=== PATIENT | female | born 1990 | race Caucasian/White ===

== ENCOUNTER 2017-03-15 10:30 | Observation (INO) | payer OTHER ==
[~2017-03-15] VITALS: Ht 152 cm; Wt 65.4 kg
[2017-03-15 10:45] VITALS: BP 118/85
[2017-03-15] MEDS ORDERED: PREN1TAB80 PO (10:46)
[2017-03-15 12:35] LABS: HEMOGLOBIN A1C 5.7 % (4.5-6.2)
== END 2017-03-15 13:00 | disposition home or self-care (01) ==
LOC: 4S 10:30
PROVIDERS: ADMIT Obstetrics & Gynecology; ATTEND Obstetrics & Gynecology
DX: O24.419 Gestational diabetes mellitus in pregnancy, unspecified control (principal); Z3A.39 39 weeks gestation of pregnancy
CPT/HCPCS: 36415; 59025; 82947; 83036; G0378

== ENCOUNTER 2017-03-18 10:50 | Observation (INO) | payer OTHER ==
[~2017-03-18] VITALS: Ht 152.4 cm; Wt 65.8 kg
[~2017-03-18 10:50] MED LIST: PREN1TAB80 PO
[2017-03-18 11:51] VITALS: BP 102/64
== END 2017-03-18 11:10 | disposition home or self-care (01) ==
LOC: 4S 10:50
PROVIDERS: ADMIT Obstetrics & Gynecology; ATTEND Obstetrics & Gynecology
DX: Z34.93 Encounter for supervision of normal pregnancy, unspecified, third trimester (principal); Z3A.39 39 weeks gestation of pregnancy
CPT/HCPCS: 59025; G0378

== ENCOUNTER 2017-03-19 04:14 | Inpatient (IN) | payer OTHER ==
[~2017-03-19] VITALS: Ht 154.9 cm; Wt 65.3 kg
[2017-03-19] MEDS ORDERED: OXYTOCIN 30 UNITS/LACT RINGERS 500 ML IV ONE (04:29)
[2017-03-19] MEDS ORDERED: RINGERS SOLUTION,LACTATED 1,000 ML IV SCH (04:29)
[2017-03-19] MEDS ORDERED: METOCLOPRAMIDE HCL 5 MG/ML 2 ML VIAL IVP PRN (04:30)
[2017-03-19] MEDS ORDERED: CITRIC ACID/SODIUM CITRATE 30 ML SOLUTION UDCUP PO PRN (04:30)
[2017-03-19] MEDS: RINGERS SOLUTION,LACTATED 1,000 ML IV PRN ×2 (05:11→08:30)
[2017-03-19] MEDS: FentaNYL CITRATE-PF 100 MCG/2 ML VIAL IVP PRN ×3 (05:12→06:45)
[2017-03-19 05:15] VITALS: BP 135/85
[2017-03-19 05:18] LABS: BASOPHILS # (AUTO) 0.03 K/uL (0.00-0.20); BASOPHILS % (AUTO) 0.2 % (0.0-2.0); EOSINOPHILS # (AUTO) 0.06 K/uL (0.00-0.70); EOSINOPHILS % (AUTO) 0.45 % (1.0-6.0); HEMATOCRIT 38.2 % (36-46); HEMOGLOBIN 12.8 g/dL (12.0-16.0); LYMPHOCYTES # (AUTO) 1.7 K/uL (1.0-4.8); MEAN CORPUSCULAR HEMOGLOBIN 31.1 pg (26.0-34.0); MEAN CORPUSCULAR HGB CONC 33.4 G/dL (31.0-37.0); MEAN CORPUSCULAR VOLUME 93 fL (80-100); MONOCYTES % (AUTO) 7.5 % (2.0-9.0); NEUTROPHILS # (AUTO) 10.3 K/uL (1.8-7.7); NEUTROPHILS % (AUTO) 78.8 % (40.0-70.0); RED CELL DISTRIBUTION WIDTH 13.4 % (11.5-14.5)
[2017-03-19] MEDS ORDERED: FentaNYL/BUPIV 0.125%/NS/PF 200 ML ED ONE (07:54)
[2017-03-19] MEDS ORDERED: LIDOCAINE HCL/PF 2% 5 ML VIAL ONE ×2 (07:54→14:30)
[2017-03-19] MEDS ORDERED: BUPIVACAINE HCL/PF 0.25% 10 ML VIAL ONE (07:54)
[2017-03-19] MEDS ORDERED: OXYGEN THERAPY IH SCH (08:00)
[2017-03-19] MEDS ORDERED: FentaNYL/BUPIV 0.125%/NS/PF 200 ML ED PRN (08:38)
[2017-03-19] MEDS ORDERED: NALBUPHINE HCL 10 MG/ML VIAL IVP PRN (08:45)
[2017-03-19] MEDS ORDERED: PROMETHAZINE HCL 12.5 MG in SODIUM CHLORIDE 0.9% 50 ML IV PRN (08:45)
[2017-03-19] MEDS ORDERED: DiphenhydrAMINE HCL 50 MG/ML VIAL IVP PRN (08:45)
[2017-03-19] MEDS ORDERED: ONDANSETRON HCL 4 MG/2 ML VIAL IVP PRN (08:45)
[2017-03-19] MEDS ORDERED: AMPICILLIN SODIUM 2 GM/NS 100 ML IV ONE (09:00)
[2017-03-19] MEDS ORDERED: OXYTOCIN 30 UNITS/LACT RINGERS 500 ML IV PRN (09:48)
[2017-03-19] MEDS: AMPICILLIN SODIUM 1 GM/NS 50 ML IV SCH ×2 (13:13→16:38)
[2017-03-19] MEDS ORDERED: FentaNYL CITRATE-PF 100 MCG/2 ML VIAL ONE (14:30)
[2017-03-19] MEDS ORDERED: BUPIVACAINE HCL/PF 0.5% 10 ML VIAL ONE (14:30)
[2017-03-19] MEDS ORDERED: GENTAMICIN 100 MG/NACL ISO-OSM 50 ML IV ONE (17:00)
[2017-03-19] MEDS ORDERED: LANOLIN 7 GM OINTMENT TP PRN (19:30)
[2017-03-19] MEDS ORDERED: BENZOCAINE 20%/MENTHOL 56 GM SPRAY CANISTER TP PRN (19:30)
[2017-03-19] MEDS ORDERED: GLYCERIN/WITCH HAZEL LEAF 40 PADS JAR TP PRN (19:30)
[2017-03-19] MEDS ORDERED: ACETAMINOPHEN/CODEINE 300-30 MG TABLET PO PRN ×2 (19:30)
[2017-03-19] MEDS: SENNA/DOCUSATE SODIUM 187-50 MG TABLET PO SCH (22:06)
[2017-03-19] MEDS: MAGNESIUM HYDROXIDE SUSPENSION 30 ML UDCUP PO SCH (22:06)
[2017-03-20] MEDS: IBUPROFEN 600 MG TABLET PO PRN ×2 (03:33→08:51)
[2017-03-20] MEDS: MAGNESIUM HYDROXIDE SUSPENSION 30 ML UDCUP PO SCH (08:52)
[2017-03-20] MEDS: SENNA/DOCUSATE SODIUM 187-50 MG TABLET PO SCH (08:52)
[2017-03-20 10:13] LABS: GLUCOSE,POINT OF CARE 92 MG/DL (70-110)
[2017-03-20] MEDS ORDERED: DSS100 PO (10:50)
[2017-03-20] MEDS ORDERED: IBUP-2070 PO (10:50)
== END 2017-03-20 17:35 | disposition home or self-care (01) | DRG 775 ==
LOC: 4S 04:14 → PREOBSVTOIN 04-18 04:24
PROVIDERS: ADMIT Obstetrics & Gynecology; ATTEND Obstetrics & Gynecology
PROC: 10E0XZZ Delivery of Products of Conception, External Approach (ICD-10-PCS; principal; 2017-03-19)
PROC: 0UQMXZZ Repair Vulva, External Approach (ICD-10-PCS; 2017-03-19)
PROC: 3E0S3CZ (ICD-10-PCS; 2017-03-19)
PROC: 00HU33Z Insertion of Infusion Device into Spinal Canal, Percutaneous Approach (ICD-10-PCS; 2017-03-19)
DX: O71.82 Other specified trauma to perineum and vulva (principal); Z37.0 Single live birth; Z3A.40 40 weeks gestation of pregnancy
CPT/HCPCS: 82962; 86850; 86900; 86901; J0290; J1580; J2590; J3010; J3490; J7120

== ENCOUNTER 2018-05-10 14:25 | Observation (INO) | payer OTHER ==
[~2018-05-10] VITALS: Ht 152.4 cm; Wt 63.5 kg
[~2018-05-10 14:25] MED LIST changes: +DSS100 PO; +IBUP-2070 PO
[2018-05-10] MEDS ORDERED: AZITHROMYCIN 500 MG/NS 250 ML IV ONE (15:00)
== END 2018-05-10 17:15 | disposition home or self-care (01) ==
LOC: 4S 14:25
PROVIDERS: ADMIT Obstetrics & Gynecology; ATTEND Obstetrics & Gynecology
DX: Z34.83 Encounter for supervision of other normal pregnancy, third trimester (principal); Z3A.39 39 weeks gestation of pregnancy
CPT/HCPCS: 59025; 96365; G0378; J0456

== ENCOUNTER 2018-05-10 21:25 | Inpatient (IN) | payer OTHER ==
[~2018-05-10] VITALS: Ht 152.4 cm; Wt 63.2 kg
[2018-05-20 11:54] VITALS: BP 102/62
[2018-05-20] MEDS ORDERED: RINGERS SOLUTION,LACTATED 1,000 ML IV PRN (12:27)
[2018-05-20] MEDS ORDERED: OXYTOCIN 30 UNITS/LACT RINGERS 500 ML IV ONE (12:27)
[2018-05-20] MEDS ORDERED: RINGERS SOLUTION,LACTATED 1,000 ML IV SCH ×2 (12:27)
[2018-05-20] MEDS ORDERED: FentaNYL CITRATE-PF 100 MCG/2 ML VIAL IVP PRN (12:30)
[2018-05-20] MEDS ORDERED: OXYGEN THERAPY IH SCH (12:30)
[2018-05-20] MEDS ORDERED: CITRIC ACID/SODIUM CITRATE 30 ML SOLUTION UDCUP PO PRN (12:30)
[2018-05-20] MEDS ORDERED: LIDOCAINE/PF 1% 30 ML VIAL INJ PRN (12:30)
[2018-05-20] MEDS ORDERED: MISOPROSTOL 25 MCG TABLET PO ONE (12:30)
[2018-05-20] MEDS ORDERED: METHYLERGONOVINE MALEATE 0.2 MG/ML VIAL IM PRN (12:30)
[2018-05-20] MEDS ORDERED: METOCLOPRAMIDE HCL 5 MG/ML 2 ML VIAL IVP PRN (12:30)
[2018-05-20 13:04] LABS: BASOPHILS % (AUTO) 0.4 % (0.0-2.0); EOSINOPHILS % (AUTO) 1.7 % (1.0-6.0); HEMATOCRIT 32.9 % (36-46); HEMOGLOBIN 11.1 g/dL (12.0-16.0); LYMPHOCYTES # (AUTO) 2.8 K/uL (1.0-4.8); LYMPHOCYTES % (AUTO) 24.1 % (22.0-44.0); MEAN CORPUSCULAR HEMOGLOBIN 30.5 pg (26.0-34.0); MEAN CORPUSCULAR HGB CONC 33.7 G/dL (31.0-37.0); MEAN CORPUSCULAR VOLUME 90 fL (80-100); NEUTROPHILS # (AUTO) 7.5 K/uL (1.8-7.7); NEUTROPHILS % (AUTO) 64.8 % (40.0-70.0); PLATELET COUNT (AUTO)-OB 185 K/uL (150-450); RED BLOOD CELL COUNT(AUTO) 3.64 MIL/uL (4.00-5.20); RED CELL DISTRIBUTION WIDTH 13.9 % (11.5-14.5)
[2018-05-20] MEDS: RINGERS SOLUTION,LACTATED 1,000 ML IV SCH ×4 (13:15→22:54)
[2018-05-20] MEDS ORDERED: OXYTOCIN 30 UNITS/LACT RINGERS 500 ML IV PRN (17:35)
[2018-05-20] MEDS ORDERED: ROPIVACAINE HCL/PF 0.2% 100 ML ED ONE (20:40)
[2018-05-20] MEDS ORDERED: ROPIVACAINE HCL/PF 0.2% 100 ML ED PRN (21:02)
[2018-05-20] MEDS ORDERED: ONDANSETRON HCL 4 MG/2 ML VIAL IVP PRN (21:15)
[2018-05-20] MEDS ORDERED: DiphenhydrAMINE HCL 50 MG/ML VIAL IVP PRN (21:15)
[2018-05-21] MEDS ORDERED: OXYTOCIN 30 UNITS/LACT RINGERS 500 ML IV ONE (06:46)
[2018-05-21] MEDS ORDERED: GLYCERIN/WITCH HAZEL LEAF 40 PADS JAR TP PRN (07:00)
[2018-05-21] MEDS ORDERED: LANOLIN 7 GM OINTMENT TP PRN (07:00)
[2018-05-21] MEDS ORDERED: OxyCODONE HCL/ACETAMINOPHEN 5-325 MG TABLET PO PRN ×2 (07:00)
[2018-05-21] MEDS ORDERED: BENZOCAINE 20%/MENTHOL 56 GM SPRAY CANISTER TP PRN (07:00)
[2018-05-21] MEDS ORDERED: MAGNESIUM HYDROXIDE SUSPENSION 30 ML UDCUP PO PRN (07:00)
[2018-05-21] MEDS ORDERED: LIDOCAINE/PF 1% 30 ML VIAL INJ PRN (07:00)
[2018-05-21] MEDS: IBUPROFEN 800 MG TABLET PO PRN ×2 (08:00→15:36)
[2018-05-22] MEDS: IBUPROFEN 800 MG TABLET PO PRN (01:08)
[2018-05-22] MEDS ORDERED: PHENYLEPHRINE/SHK LV/MIN OIL/PET 57 GM OINTMENT TP PRN (02:15)
[2018-05-22 05:25] LABS: BASOPHILS % (AUTO) 0.4 % (0.0-2.0); EOSINOPHILS % (AUTO) 2.2 % (1.0-6.0); HEMOGLOBIN 10.8 g/dL (12.0-16.0); LYMPHOCYTES # (AUTO) 3.1 K/uL (1.0-4.8); MEAN CORPUSCULAR HEMOGLOBIN 32.4 pg (26.0-34.0); MEAN CORPUSCULAR HGB CONC 34.9 G/dL (31.0-37.0); MEAN CORPUSCULAR VOLUME 93 fL (80-100); MONOCYTES % (AUTO) 7.9 % (2.0-9.0); NEUTROPHILS # (AUTO) 7.9 K/uL (1.8-7.7); NEUTROPHILS % (AUTO) 64.5 % (40.0-70.0); PLATELET COUNT (AUTO)-OB 163 K/uL (150-450); RED BLOOD CELL COUNT(AUTO) 3.33 MIL/uL (4.00-5.20); RED CELL DISTRIBUTION WIDTH 13.7 % (11.5-14.5)
== END 2018-05-22 10:40 | disposition home or self-care (01) | DRG 807 ==
LOC: OBSVTOIN 05-20 11:18 → 4S 05-20 11:18
PROVIDERS: ADMIT Obstetrics & Gynecology; ATTEND Obstetrics & Gynecology
PROC: 10E0XZZ Delivery of Products of Conception, External Approach (ICD-10-PCS; principal; 2018-05-21)
PROC: 0HQ9XZZ Repair Perineum Skin, External Approach (ICD-10-PCS; 2018-05-21)
PROC: 3E0R3BZ Introduction of Anesthetic Agent into Spinal Canal, Percutaneous Approach (ICD-10-PCS; 2018-05-21)
PROC: 00HU33Z Insertion of Infusion Device into Spinal Canal, Percutaneous Approach (ICD-10-PCS; 2018-05-21)
DX: O69.81X0 Labor and delivery complicated by cord around neck, without compression, not applicable or unspecified (principal); Z37.0 Single live birth; O70.0 First degree perineal laceration during delivery; Z3A.41 41 weeks gestation of pregnancy
CPT/HCPCS: 86850; 86900; 86901; J2590; J2795; J7120